=== PATIENT | female | born 1955 | race Asian ===

== ENCOUNTER 2016-12-02 08:13 | Day surgery (SDC) | payer OTHER ==
[2016-12-02] VITALS (8 sets, daily range): BP systolic 91–120; BP diastolic 56–76; PULSE 57–63; TEMP 36.5–36.7; O2SAT 94–97
[~2016-12-02 08:13] MED LIST: ATOR-22 PO; BUPR75TA20 PO; FAMO20TA11 PO; GLIP-197 PO; METF-384 PO; METO-157 PO
[2016-12-02 09:36] LABS: BASO % 0.5 %; BASO ABS # 0.03 K/uL (0-0.2); EOS % 2.8 %; HEMATOCRIT 41.9 % (37-47); IG% 0.2 %; LYMPH % 39.9 %; MEAN CELL VOLUME 91.9 fL (80-100); MEAN CORPUSCULAR HEMOGLOBIN 29.8 pg (25-34); MEAN PLATELET VOLUME 10.5 fL (7.4-10.4); MONO % 6.7 %; NEUT % 49.9 %; PLATELET COUNT 201 K/uL (130-400); RED BLOOD COUNT 4.56 M/uL (4.2-5.4); WHITE BLOOD COUNT 6.01 K/uL (4.8-10.8)
[2016-12-02 09:40] LABS: COMPLETE YES; MEAN CORPUSCULAR HGB CONC 32.5 g/dl (32-36)
[2016-12-02 09:43] LABS: PROTHROMBIN TIME (PATIENT) 10.7 SECONDS (9.0-12.0)
[2016-12-02] MEDS ORDERED: EZET10TA63 PO (09:47)
--- NOTE | 2016-12-02 10:41 | Discharge Instructions ---
Discharge Instructions Procedure Procedure Date: December 02, 2016. Reason for visit: Elevated Lft's. Discharge Discharge Date: December 02, 2016. Discharge Diagnosis: s/p core liver biopsy Instructions Activity Recommendations: 1 Day-May resume regular activity, 48 Hours of decreased exertion Return to School/Work: no limitations Recommended Home Diet: No Limitations Provider Instructions: ACTIVITY RECOMMENDATIONS: * Rest today. * Resume regular activity in one day. MEDICATIONS: * May take Tylenol or Ibuprofen as needed for pain. DIET: * Resume previous diet. SPECIAL CARE INSTRUCTIONS: Call your doctor if: * Temperature above 101 degrees F. * Pain not relieved by pain medicine ordered. * Increased drainage or redness from incision. * Notify your doctor with any questions or concerns. Call your doctor or go to the nearest Emergency Department if you experience: * Increased chest pain or shortness of breath. FOLLOW UP VISIT: Follow-up with Referring Physician as scheduled. Allergies Coded Allergies: No Known Allergies (Unverified , 12/02/16) Delmis Duffy Recommendations: Call your doctor if: * Temperature above 101 degrees * Pain not relieved by pain medicine ordered * There is increased drainage or redness from any incision * You have any unanswered questions or concerns. Your Doctors Instructions noted above were prepared by provider Andrew Camara. Patient Signature Section: Patient Instructions Signature Page Rosy Mares Patient (or Guardian) Signature/Date: I have read and understand the instructions given to me by my caregivers. Caregiver/RN/Doctor Signature/Date: The above-named patient and/or guardian has received patient instructions on this date. + Original Patient Signature Page (only) stays with chart. Please make copy for patient.
--- NOTE | 2016-12-02 10:57 | DIAGNOSTIC IMAGING REPORT ---
ULTRASOUND GUIDED RANDOM CORE LIVER BIOPSY CLINICAL HISTORY: Elevated liver function tests. Needle biopsy of liver. COMPARISON STUDY: No previous studies for comparison. PROCEDURE: An branch office manager was utilized for the consent. The procedure, risks and benefits were discussed with the patient through the branch office manager including the risk of bleeding, infection and injury to adjacent structures. She agreed to the procedure and informed written consent was obtained. The procedure was performed by Dr. Camara following a timeout. Sonography of the left lobe demonstrate a suitable window with increased echogenicity suggestive of fatty infiltration. Skin was prepped and draped in sterile fashion and local anesthesia was achieved with 1% lidocaine. Under direct ultrasound guidance, 2 18-gauge core samples were obtained the samples were deemed adequate. The patient tolerated the procedure well and no immediate complications were evident. IMPRESSION: 1. Ultrasound guided random core liver biopsy. 2. Increased hepatic echogenicity suggestive of fatty infiltration. Electronically signed by: Andrew Camara M.D. 12/02/2016 10:56 AM Dictated Date/Time: 12/02/2016 10:54 AM
--- NOTE | 2017-02-17 14:27 | DIAGNOSTIC IMAGING REPORT ---
ULTRASOUND GUIDED RANDOM CORE LIVER BIOPSY CLINICAL HISTORY: Elevated liver function tests. Needle biopsy of liver. COMPARISON STUDY: No previous studies for comparison. PROCEDURE: An accounting teacher was utilized for the consent. The procedure, risks and benefits were discussed with the patient through the accounting teacher including the risk of bleeding, infection and injury to adjacent structures. She agreed to the procedure and informed written consent was obtained. The procedure was performed by Dr. Camara following a timeout. Sonography of the left lobe demonstrate a suitable window with increased echogenicity suggestive of fatty infiltration. Skin was prepped and draped in sterile fashion and local anesthesia was achieved with 1% lidocaine. Under direct ultrasound guidance, 2 18-gauge core samples were obtained the samples were deemed adequate. The patient tolerated the procedure well and no immediate complications were evident. IMPRESSION: 1. Ultrasound guided random core liver biopsy. 2. Increased hepatic echogenicity suggestive of fatty infiltration. Electronically signed by: Andrew Camara M.D. 12/02/2016 10:56 AM Dictated Date/Time: 12/02/2016 10:54 AM
== END 2016-12-02 13:45 | disposition home or self-care (01) ==
LOC: C.ACU 08:13
PROVIDERS: ATTEND Nurse Practitioner
DX: R94.5 Abnormal results of liver function studies (principal); K76.0 Fatty (change of) liver, not elsewhere classified